=== PATIENT | female | born 1990 | race Asian ===

== ENCOUNTER 2017-10-30 13:11 | Inpatient (IN) | payer SELFPAY ==
[~2017-10-30] VITALS: Ht 167.6 cm; Wt 77.1 kg
[2017-10-31 20:00] VITALS: BP 119/73
[2017-10-31] MEDS ORDERED: OXYTOCIN 20 UNITS in LACTATED RINGERS 1,000 ML IV SCH (20:50)
[2017-10-31] MEDS ORDERED: METHYLERGONOVINE 0.2 MG/ML AMP IM PRN (20:50)
[2017-10-31] MEDS ORDERED: OXYTOCIN 10 UNITS/ML VIAL IM SCH (20:50)
[2017-10-31] MEDS ORDERED: CARBOPROST 250 MCG/ML AMP IM PRN (20:50)
[2017-10-31 21:28] LABS: BASOPHILS % (AUTO) 0.3 % (0.0-2.0); EOSINOPHILS % (AUTO) 0.3 % (0.0-4.0); HEMATOCRIT 39.1 % (36-48); HEMOGLOBIN 13.2 g/dL (12.0-16.0); LYMPHOCYTES # (AUTO) 1.7 K/uL (2.5-16.5); LYMPHOCYTES % (AUTO) 16.3 % (20.5-51.1); MEAN CORPUSCULAR HEMOGLOBIN 32 pg (27-31); MEAN CORPUSCULAR HGB CONC 34 g/dL (33-37); MEAN CORPUSCULAR VOLUME 95.5 fL (80-94); MONOCYTES % (AUTO) 9.1 % (1.7-9.3); NEUTROPHILS # (AUTO) 7.8 K/uL (1.8-7.7); PLATELET COUNT (AUTO) 201 K/uL (140-450); RED CELL DISTRIBUTION WIDTH 13.1 % (11.6-13.7); WHITE BLOOD COUNT (AUTO) 10.5 K/uL (4.8-10.8)
[2017-10-31 21:30] LABS: APPEARANCE,URINE CLEAR (CLEAR); BILIRUBIN,URINE NEGATIVE (NEGATIVE); BLOOD, URINE 2+ (NEGATIVE); COLOR,URINE YELLOW (YELLOW); LEUKOCYTE ESTERASE ,URINE NEGATIVE (NEGATIVE); NITRITE, URINE NEGATIVE (NEGATIVE); UGLUCOSE NEGATIVE (NEGATIVE)
[2017-10-31 21:40] LABS: RBC,URINE 0-5 (RARE) /HPF (0-5)
[2017-10-31] MEDS: LACTATED RINGERS 1,000 ML IV SCH ×2 (21:56→22:45)
[2017-10-31] MEDS ORDERED: OXYTOCIN 20 UNITS/LR PREMIX 1,000 ML IV ONE (22:11)
[2017-10-31] MEDS ORDERED: BUPIVACAINE 0.125%/NS PREMIX 250 ML ONE (22:56)
[2017-10-31] MEDS ORDERED: PREN-380 PO (23:35)
[2017-10-31] MEDS ORDERED: FERR-252 PO (23:35)
[2017-11-01] MEDS: LACTATED RINGERS 1,000 ML IV SCH ×2 (02:49→09:50)
--- NOTE | 2017-11-01 06:39 | NUR ---
PATIENT HAS BEEN SCREENED AND CATEGORIZED LOW NUTRITION RISK. PATIENT WILL BE SEEN WITHIN 7 DAYS OF ADMISSION. 11/07/17 GEOVANI MAURER MS, RDN
[2017-11-01] MEDS ORDERED: METHYLERGONOVINE 0.2 MG/ML AMP ONE (07:51)
[2017-11-01] MEDS ORDERED: CARBOPROST 250 MCG/ML AMP IM ONE (07:52)
[2017-11-01] MEDS ORDERED: OXYTOCIN 10 UNITS/ML VIAL ONE (08:03)
[2017-11-01] MEDS ORDERED: oxyCODONE/APAP 5/325 MG 1 TAB TAB PO PRN (11:35)
[2017-11-01] MEDS ORDERED: IBUPROFEN 800 MG TAB PO PRN (11:35)
[2017-11-01] MEDS ORDERED: HYDROcodone/APAP 5/325 MG 1 TAB TAB PO PRN (11:35)
[2017-11-01] MEDS ORDERED: TEMAZEPAM 15 MG CAP PO PRN (11:35)
[2017-11-01] MEDS ORDERED: BENZOCAINE/MENTHOL 20%-0.5% 60 GM CAN TP PRN (11:35)
[2017-11-01] MEDS ORDERED: OXYTOCIN 10 UNITS/ML VIAL IM PRN (11:35)
[2017-11-01] MEDS ORDERED: MEASLES, MUMPS, AND RUBELLA 1 VIAL SQVAC PRN (11:35)
[2017-11-01] MEDS ORDERED: METHYLERGONOVINE 0.2 MG/ML AMP IM PRN (11:35)
[2017-11-01] MEDS ORDERED: AMMONIA AROMATIC 1 INHL INH ONE (14:00)
[2017-11-01] MEDS ORDERED: DOCUSATE SOD/SENNA 50/8.6 MG 1 TAB PO SCH (21:00)
[2017-11-02 09:40] LABS: MEAN CORPUSCULAR HEMOGLOBIN 32 pg (27-31); WHITE BLOOD COUNT (AUTO) 15.3 K/uL (4.8-10.8)
[2017-11-02 09:43] LABS: HEMATOCRIT 33.8 % (36-48); HEMOGLOBIN 11.2 g/dL (12.0-16.0); MEAN CORPUSCULAR HGB CONC 33 g/dL (33-37); MEAN CORPUSCULAR VOLUME 94.6 fL (80-94); PLATELET COUNT (AUTO) 190 K/uL (140-450); RED BLOOD CELL COUNT(AUTO) 3.57 MIL/uL (4.20-5.40); RED CELL DISTRIBUTION WIDTH 12.2 % (11.6-13.7)
[2017-11-02 10:02] LABS: BASOPHILS % (MANUAL) 0 % (0-2); EOSINOPHILS % (MANUAL) 0 % (0-4); LYMPHOCYTES % (MANUAL) 11 % (20-46); MONOCYTES % (MANUAL) 6 % (5-12)
[2017-11-02] MEDS ORDERED: IBUP-2213 PO (12:31)
== END 2017-11-02 18:35 | disposition home or self-care (01) | DRG 775 ==
LOC: MLD 10-31 19:57 → MFCC 11-01 16:24
PROVIDERS: ADMIT Obstetrics & Gynecology; ATTEND Obstetrics & Gynecology
PROC: 10D07Z6 Extraction of Products of Conception, Vacuum, Via Natural or Artificial Opening (ICD-10-PCS; principal; 2017-11-01)
PROC: 0HQ9XZZ Repair Perineum Skin, External Approach (ICD-10-PCS; 2017-11-01)
PROC: 3E0R3BZ Introduction of Anesthetic Agent into Spinal Canal, Percutaneous Approach (ICD-10-PCS; 2017-11-01)
PROC: 00HU33Z Insertion of Infusion Device into Spinal Canal, Percutaneous Approach (ICD-10-PCS; 2017-11-01)
PROC: 0W8NXZZ Division of Female Perineum, External Approach (ICD-10-PCS; 2017-11-01)
PROC: 3E0234Z Introduction of Serum, Toxoid and Vaccine into Muscle, Percutaneous Approach (ICD-10-PCS; 2017-11-01)
DX: O69.81X0 Labor and delivery complicated by cord around neck, without compression, not applicable or unspecified (principal); Z3A.40 40 weeks gestation of pregnancy; Z37.0 Single live birth; O70.9 Perineal laceration during delivery, unspecified; Z23 Encounter for immunization
CPT/HCPCS: 36415; 51702; 81001; 85025; 86592; 86886; 86900; 86901; 87086; 90715; J2210; J2590; J3490; J7120